=== PATIENT | male | born 1980 | race Two or more races ===

== ENCOUNTER 2021-01-18 14:10 | Emergency (ER) | payer OTHER ==
[2021-01-18 14:25] VITALS: BP 113/77; PULSE 72; TEMP 97.6; BMI 21.3
[2021-01-18] MEDS ORDERED: LIDOCAINE VISCOUS 2% ORAL/TOP 15 ML UNIT-DOSE CUP MM ONE (14:58)
[2021-01-18] MEDS ORDERED: IBUPROFEN 600 MG TABLET (FP) PO ONE ×2 (14:59→15:02)
[2021-01-18] MEDS ORDERED: LIDOCAINE VISCOUS 2% ORAL/TOP 15 ML UNIT-DOSE CUP ONE (15:00)
== END 2021-01-18 15:21 | disposition home or self-care (01) ==
LOC: JERFT 14:10
DX: K12.0 Recurrent oral aphthae (principal)
CPT/HCPCS: 99283-25

== ENCOUNTER 2021-04-19 14:06 | Emergency (ER) | payer OTHER ==
[2021-04-19 14:22] VITALS: BP 111/77; PULSE 79; TEMP 98.4; BMI 23.1
[2021-04-19] MEDS ORDERED: IBUPROFEN 600 MG TABLET (FP) PO ONE ×2 (15:49→17:48)
[2021-04-19 18:38] LABS: THROAT:GRP A STREP NOT DETECTED (NOTDETECTED)
[2021-04-19 19:55] LABS: SARS COV-2 MOLECULAR Negative (Negative)
== END 2021-04-19 18:16 ==
LOC: JER 14:06
DX: J02.9 Acute pharyngitis, unspecified (principal)
CPT/HCPCS: 87651; 99283-25; C9803; U0003; U0005